=== PATIENT | male | born 1990 | race African-American/Black ===

== ENCOUNTER 2020-03-01 19:44 | Emergency (ER) | payer OTHER, SELFPAY ==
[2020-03-01 19:45] VITALS: BP 153/71; PULSE 72; RESP 16; TEMP 36.2; O2SAT 100
--- NOTE | 2020-03-01 19:56 | ED.GENADULT ---
HPI - General Adult General Chief complaint: Unspecified Stated complaint: nipple swelling Time Seen by Provider: 03/01/20 19:49 Source: patient Mode of arrival: ambulatory Limitations: no limitations History of Present Illness HPI narrative: 30 years old -Finnish male presents with swelling of the right breast started 3 to 4 weeks ago. Patient denies any fever, chills, nausea, vomiting, trauma, discharge. Patient also denies any family history of breast cancer. Patient on hemodialysis Related Data Allergies Allergy/AdvReac Type Severity Reaction Status Date / Time No Known Allergies Allergy Unverified 07/26/17 20:02 Review of Systems Review of Systems: Narrative: CONSTITUTIONAL: Denies fever, chills, or sweats. EYES: Denies visual changes, redness, or discharge. ENT: Denies rhinorrhea, congestion, sore throat, or otalgia. CARDIOVASCULAR: Denies chest pain, palpitations, or edema. RESPIRATORY: Denies cough or dyspnea. GASTROINTESTINAL: Denies abdominal pain, nausea, vomiting, or diarrhea. GENITOURINARY: Denies dysuria or hematuria. SKIN: Denies rash or itching. MUSCULOSKELETAL: Denies back pain, joint pain, or myalgia. NEUROLOGIC: Denies headache, numbness, or weakness. PSYCHIATRIC: Denies anxiety or depression. [facility] Past Medical History Medical History (Updated 03/01/20 @ 20:15 by Brenda Holm MD) Hemodialysis access site with arteriovenous graft Family History Family History (Updated 07/21/17 @ 08:42 by DOCTOR UNKNOWN) Other Cerebrovascular accident Hypertension Social History Social History Alcohol intake: never Gender identity (if verbalized by the patient): Male Exam Narrative: Exam Narrative: General appearance: Well-developed, well-nourished Skin: Normal color. Right breast exam showed no erythema, no nipple discharge, subcutaneous tender 3 x 3 cm lump like feeling under the areOLA, no right axillary lymphadenopathy Neck: Supple, nontender Chest and respiratory: Airway patent, no respiratory distress, no accessory muscle use Heart: Regular rate/rhythm Abdomen: Soft, nontender, no organomegaly, quiet bowel sounds Musculoskeletal: Normal range of motion, nontender back Neurologic: Alert and oriented ?3, LINE MOVER is normal as tested, no gross motor deficit Course Course Emergency Course: Stable Consultations Consultation #1: Dr. Judd Patient need to call his office tomorrow for appointment. Date: 03/01/20 Time: 20:18 Vital Signs Vital signs: Vital Signs Temperature 36.2 C L 03/01/20 19:45 Pulse Rate 72 03/01/20 19:45 Respiratory Rate 16 03/01/20 19:45 Blood Pressure 153/71 H 03/01/20 19:45 Pulse Oximetry 100 03/01/20 19:45 Temperature 36.2 C L 03/01/20 19:45 Pulse Rate 72 03/01/20 19:45 Respiratory Rate 16 03/01/20 19:45 Blood Pressure 153/71 H 03/01/20 19:45 Pulse Oximetry 100 03/01/20 19:45 Medical Decision Making MDM Narrative Medical decision making narrative: Right breast lump. Subcutaneous cyst, subcutaneous mass is my concern Differential Diagnosis Differential Diagnosis: Breast mass, cyst Vital Signs Vital Signs: Vital Signs Temperature 36.2 C L 03/01/20 19:45 Pulse Rate 72 03/01/20 19:45 Respiratory Rate 16 03/01/20 19:45 Blood Pressure 153/71 H 03/01/20 19:45 Pulse Oximetry 100 03/01/20 19:45 Temperature 36.2 C L 03/01/20 19:45 Pulse Rate 72 03/01/20 19:45 Respiratory Rate 16 03/01/20 19:45 Blood Pressure 153/71 H 03/01/20 19:45 Pulse Oximetry 100 03/01/20 19:45 Critical Care Time Critical Care Time Critical Care Time: No Discharge Plan Discharge Clinical Impression: Breast lump or mass
[2020-03-01 20:29] VITALS: BP 148/79; PULSE 86; RESP 16; TEMP 36.7; O2SAT 99
== END 2020-03-01 20:30 | disposition home or self-care (01) ==
LOC: ANHED 20:17
PROVIDERS: Emergency Provider Emergency Medicine
DX: N63.10 Unspecified lump in the right breast, unspecified quadrant (principal)
CPT/HCPCS: 99281

== ENCOUNTER 2020-03-13 12:05 | Outpatient (CLI) | payer OTHER, SELFPAY ==
--- NOTE | ~2020-03-13 | US_ITS ---
EXAMINATION: US breast RT limited HISTORY: Palpable lump in the subareolar aspect of the right breast TECHNIQUE: Limited right breast ultrasound was performed. FINDINGS: There is a focal hypoechoic mass in the subareolar aspect of the right breast which demonst rates some peripheral vascularity and posterior acoustic enhancement corresponding to the palpable ab normality of concern. IMPRESSION: Sonographic findings consistent with asymmetric gynecomastia on the right. Further evaluation at this time should be based on clinical assessment. Continued follow-up physical examination is recommended . BI-RADS Category 2: Benign finding(s). Reviewed, dictated and finalized at location A. TENANCE PLANNER IMPRESSION: Sonographic findings consistent with asymmetric gynecomastia on the right. Furt her evaluation at this time should be based on clinical assessment. Continued f ollow-up physical examination is recommended. BI-RADS Category 2: Benign finding(s).
== END 2020-03-13 12:06 | disposition home or self-care (01) ==
PROVIDERS: PCP Nurse Practitioner; Visit Provider Surgery
DX: N63.0 Unspecified lump in unspecified breast (principal)
CPT/HCPCS: 76642

== ENCOUNTER 2020-09-09 00:18 | Emergency (ER) | payer OTHER, SELFPAY ==
[2020-09-09] VITALS (7 sets, daily range): BP systolic 162–205; BP diastolic 96–130; PULSE 64–105; RESP 12–24; TEMP 36.6; O2SAT 100
--- NOTE | ~2020-09-09 | CT_ITS ---
EXAMINATION: CT abdomen pelvis wo con DATE: 09/09/2020 03:30 INDICATION: Epigastric abdominal pain radiating to chest. Abdominal distention, constipation. Dialysi s patient. TECHNIQUE: Computed tomography (CT) of the abdomen and pelvis was performed without intravenous contr ast. Automated exposure control and iterative reconstruction technique were employed. Exam dose: 189 .17 mGy-cm total exam DLP. COMPARISON: 07/26/2017 CT abdomen pelvis FINDINGS: The lung bases are clear of infiltrate or consolidation. No pleural or pericardial effusion . The liver, gallbladder, bile ducts and spleen are unremarkable. The gallbladder is present. The pancreas appears relatively prominent. There is a paucity of intra-abdominal fat, limiting evalua tion for pancreatitis or other inflammatory conditions. Recommend clinical correlation to exclude suarez creatitis. The adrenal glands are unremarkable. Prominent bilateral diffuse renal atrophy Normal caliber of the abdominal aorta. No apparent intraperitoneal or retroperitoneal or pelvic mass lesion or adenopathy. The appendix appears normal. No bowel obstruction or intraperitoneal free air. No suspicious osteolytic or osteoblastic lesions. IMPRESSION: Bilateral smooth small kidneys Normal appendix No bowel obstruction or free air The pancreas appears relatively prominent; recommend clinical correlation to exclude pancreatitis Reviewed, dictated and finalized at [facility]. Reviewed, dictated and finalized at location B. IMPRESSION: Bilateral smooth small kidneys Normal appendix No bowel obstruction or free air The pancreas appears relatively prominent; recommend clinical correlation to ex clude pancreatitis
--- NOTE | ~2020-09-09 | XR_ITS ---
EXAMINATION: XR chest 2V DATE: 09/09/2020 00:54 INDICATION: Midsternal chest pain TECHNIQUE: PA and lateral views of the chest were obtained. COMPARISON: Chest radiograph dated 08/18/2017 FINDINGS: The lungs remain clear with no focal airspace opacities, pulmonary edema, pleural effusion or pneumot horax. The cardiomediastinal silhouette is normal. Vascular stent at the medial aspect of the left up per arm. IMPRESSION: 1. No acute cardiopulmonary disease. Reviewed, dictated and finalized at location A.
--- NOTE | 2020-09-09 00:22 | ECG_ITS ---
Measurements Intervals [place] Rate: 81 P: 68 CT: 131 QRS: 65 QRSD: 93 T: -15 QT: 364 QTc: 424 Interpretive Statements SINUS RHYTHM MINIMAL Q WAVES- LATERAL LEADS NONSPECIFIC T-WAVE ABNORMALITY- INFERIOR LEADS BORDERLINE ECG Electronically Signed On 09-09-2020 6:06:43 CDT by Donavan Brooks D.O.
[2020-09-09 00:49] LABS: Basophils Percent Auto 0.3 % (0.2-1.2); Eosinophils Absolute Auto 0.2 K/mm3 (0-0.3); Eosinophils Percent Auto 3.4 % (0-4.4); Hematocrit 35.6 % (42.0-52.0); Hemoglobin 11.4 g/dL (14.0-18.0); Immature Granulocyte Absolute 0.01 K/mm3 (0.00-0.031); Immature Granulocyte Percent A 0.2 % (0-0.5); Lymphocytes Absolute Auto 2.08 K/mm3 (0.9-3.2); Lymphocytes Percent Auto 35.7 % (18.3-44.2); Mean Corpuscular Hemoglobin 28.2 pg (26-34); Mean Corpuscular Volume 88.1 fl (80-100); Mean Platelet Volume 8.8 fl (7.4-10.4); Monocytes Absolute Auto 0.5 K/mm3 (0.1-0.6); Monocytes Percent Auto 8.4 % (2.6-8.5); Platelet Count Result 267 k/mm3 (150-375); Red Blood Count 4.04 M/mm3 (4.6-6.20); Red Cell Distribution Width 12.6 % (11.5-14.5); White Blood Count 5.8 K/mm3 (4.5-10.0)
[2020-09-09 00:59] LABS: INR 0.9; Prothrombin Time 11.6 Seconds (11.1-14.7)
[2020-09-09 01:00] LABS: Partial Thromboplastin Time 29.7 SECONDS (22.3-36.8)
[2020-09-09 01:02] LABS: Anion Gap 10 mmol/L (8-16); Blood Urea Nitrogen 41 mg/dL (9-20); Calcium 9.3 mg/dL (8.4-10.2); Carbon Dioxide 32 mmol/L (22-30); Chloride 95 mmol/L (98-107); Estimated CRCL calculation 7 ml/min; Estimated Glomerular Filt Rate 6; Glucose 104 mg/dL (65-110); Potassium 4.7 mmol/L (3.4-5.0); Sodium 137 mmol/L (137-145)
[2020-09-09 02:39] LABS: Alanine Aminotransferase 37 U/L (4-50); Albumin Level 4.5 g/dL (3.5-5.1); Alkaline Phosphatase 79 U/L (38-126); Aspartate Amino Transferase 34 U/L (17-59); Bilirubin,Total 0.5 mg/dL (0.2-1.3); Lipase 631 U/L (23-300)
[2020-09-09] MEDS: LABETALOL HCL INJ 100 MG/20 ML VIAL 20 MG IV PUSH (02:40)
--- NOTE | 2020-09-09 03:13 | ED.GENADULT ---
HPI - General Adult General Chief complaint: Abdominal Pain Stated complaint: abd pain Time Seen by Provider: 09/09/20 02:17 History of Present Illness HPI narrative: Patient is a 30-year-old gentleman who presents the emergency department with chief complaint of epigastric discomfort and shortness of breath. Patient states for some time he has been having increasing shortness of breath and the discomfort in the epigastric area. Patient reports he is a dialysis patient goes to dialysis Monday. Patient reports had no change in his dry weight denies fever denies vomiting denies diarrhea. Patient states that tonight he was concerned and decided to come to the emergency department for evaluation. Related Data Home Medications Medication Instructions Recorded Confirmed amlodipine 10 mg tablet 10 mg PO DAILY 03/02/20 03/18/20 losartan 25 mg tablet 25 mg PO DAILY 03/02/20 03/18/20 ondansetron 09/09/20 tramadol mg 09/09/20 09/09/20 Allergies Allergy/AdvReac Type Severity Reaction Status Date / Time No Known Allergies Allergy Verified 03/18/20 09:02 Review of Systems Review of Systems: A 10 system review of systems was completed on the patient and is negative except for what is stated in the HPI. Nursing and ancillary documentation was reviewed. 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 HEAD: Normocephalic, atraumatic. EYES: PERRLA and EOMI. ENT: Nares clear, no rhinorrhea or epistaxis. Mucous membranes moist. NECK: Supple. CHEST: Clear to auscultation. No respiratory distress. HEART: Regular rate and rhythm. No murmur heard. Normal peripheral pulses. ABDOMEN: Soft, nontender, nondistended, normal active bowel sounds. EXTREMITIES: Normal range of motion. No edema. SKIN: Warm, dry, no rash. NEURO: No focal deficits. Alert and oriented x3. PSYCH: Normal mood and affect. Course Vital Signs Vital signs: Vital Signs Temperature 36.6 C 09/09/20 00:25 Pulse Rate 105 H 09/09/20 00:25 Respiratory Rate 18 09/09/20 00:25 Blood Pressure 194/111 H 09/09/20 00:25 Pulse Oximetry 100 09/09/20 00:25 Temperature 36.6 C 09/09/20 00:25 Pulse Rate 76 09/09/20 05:01 Respiratory Rate 24 H 09/09/20 05:01 Blood Pressure 172/103 H 09/09/20 05:01 Pulse Oximetry 100 09/09/20 03:35 Medical Decision Making Vital Signs Vital Signs: Vital Signs Temperature 36.6 C 09/09/20 00:25 Pulse Rate 105 H 09/09/20 00:25 Respiratory Rate 18 09/09/20 00:25 Blood Pressure 194/111 H 09/09/20 00:25 Pulse Oximetry 100 09/09/20 00:25 Temperature 36.6 C 09/09/20 00:25 Pulse Rate 76 09/09/20 05:01 Respiratory Rate 24 H 09/09/20 05:01 Blood Pressure 172/103 H 09/09/20 05:01 Pulse Oximetry 100 09/09/20 03:35 Lab Data Result diagrams: 09/09/20 00:39 09/09/20 00:39 Labs: Lab Results 09/09/20 09/09/20 09/09/20 Range/Units 00:38 00:39 00:39 WBC 5.8 (4.5-10.0) K/mm3 RBC 4.04 L (4.6-6.20) M/mm3 Hgb 11.4 L (14.0-18.0) g/dL Hct 35.6 L (42.0-52.0) % MCV 88.1 (80-100) fl MCH 28.2 (26-34) pg MCHC 32.0 (32-36) g
--- NOTE | 2020-09-09 03:17 | PC.NURSE ---
Pt to imaging at this time.
[2020-09-09 04:23] LABS: Troponin I 0.031 ng/mL (0.000-0.034)
== END 2020-09-09 05:54 | disposition home or self-care (01) ==
PROVIDERS: Emergency Provider Emergency Medicine; PCP Nurse Practitioner
DX: I12.0 Hypertensive chronic kidney disease with stage 5 chronic kidney disease or end stage renal disease (principal); N18.6 End stage renal disease; R10.84 Generalized abdominal pain; R74.8 Abnormal levels of other serum enzymes; Z99.2 Dependence on renal dialysis; D64.9 Anemia, unspecified; R94.31 Abnormal electrocardiogram [ECG] [EKG]
CPT/HCPCS: 36415; 71046; 74176; 80048; 80076; 83690; 84484; 85025; 85610; 85730; 93005; 96374; 99284

== ENCOUNTER 2020-09-13 17:44 | Emergency (ER) | payer OTHER, SELFPAY ==
[2020-09-13 17:47] VITALS: BP 199/107; PULSE 76; RESP 18; TEMP 36.2; O2SAT 100
--- NOTE | 2020-09-13 19:07 | PC.NURSE ---
patient states his symptoms have resolved and he no longer needs to be seen
--- NOTE | 2020-09-13 21:12 | PC.NURSE ---
no answer retail personal banker for room.
== END 2020-09-13 21:12 | disposition left against medical advice (07) ==
LOC: ANHED 21:21
DX: R20.0 Anesthesia of skin (principal)
CPT/HCPCS: 99199

== ENCOUNTER 2020-09-16 13:44 | Emergency (ER) | payer OTHER, SELFPAY ==
--- NOTE | ~2020-09-16 | XR_ITS ---
EXAMINATION: XR chest 2V DATE: 09/16/2020 14:23 INDICATION: Shortness of breath. TECHNIQUE: Frontal and lateral views of the chest were obtained. COMPARISON: Chest 2 views 09/09/2020 FINDINGS: The chest demonstrates clear lungs without pneumonia, pleural effusion, or pneumothorax. Th e heart size is normal. There is a vascular stent overlying the left axilla. IMPRESSION: 1. No acute cardiopulmonary disease. Reviewed, dictated and finalized at location A.
[2020-09-16 13:55] VITALS: BP 173/102; PULSE 87; RESP 16; TEMP 36.8; O2SAT 100
--- NOTE | 2020-09-16 13:58 | ECG_ITS ---
Measurements Intervals [place] Rate: 81 P: 62 TN: 136 QRS: 40 QRSD: 87 T: -20 QT: 370 QTc: 430 Interpretive Statements SINUS RHYTHM POSSIBLE LEFT ATRIAL ENLARGEMENT BORDERLINE T WAVE ABNORMALITY- INF/LAT LEADS BASELINE ARTIFACT- V4-V6 BORDERLINE ECG Electronically Signed On 09-16-2020 15:50:00 CDT by Donavan Brooks D.O.
[2020-09-16 14:25] LABS: Anion Gap 10 mmol/L (8-16); Blood Urea Nitrogen 52 mg/dL (9-20); Calcium 8.7 mg/dL (8.4-10.2); Carbon Dioxide 31 mmol/L (22-30); Chloride 95 mmol/L (98-107); Estimated CRCL calculation 7 ml/min; Estimated Glomerular Filt Rate 6; Glucose 93 mg/dL (65-110); Potassium 4.9 mmol/L (3.4-5.0); Sodium 136 mmol/L (137-145)
[2020-09-16 14:30] LABS: Basophils Percent Auto 0.6 % (0.2-1.2); Eosinophils Absolute Auto 0.2 K/mm3 (0-0.3); Eosinophils Percent Auto 3.8 % (0-4.4); Hematocrit 30.5 % (42.0-52.0); Hemoglobin 9.5 g/dL (14.0-18.0); Immature Granulocyte Absolute 0.01 K/mm3 (0.00-0.031); Immature Granulocyte Percent A 0.2 % (0-0.5); Lymphocytes Absolute Auto 1.25 K/mm3 (0.9-3.2); Lymphocytes Percent Auto 26.7 % (18.3-44.2); Mean Corpuscular HGB Conc 31.1 g/dl (32-36); Mean Corpuscular Hemoglobin 27.6 pg (26-34); Mean Corpuscular Volume 88.7 fl (80-100); Monocytes Absolute Auto 0.4 K/mm3 (0.1-0.6); Monocytes Percent Auto 8.5 % (2.6-8.5); Neutrophils Absolute Auto 2.8 K/mm3 (1.3-6.7); Neutrophils Percent Auto 60.2 % (45.5-73.1); Platelet Count Result 226 k/mm3 (150-375); Red Blood Count 3.44 M/mm3 (4.6-6.20); Red Cell Distribution Width 12.9 % (11.5-14.5); White Blood Count 4.7 K/mm3 (4.5-10.0)
[2020-09-16 15:40] VITALS: BP 165/99; PULSE 85; PULSE 92; RESP 18; O2SAT 100
[2020-09-16 16:06] LABS: Add Urine Microscopic? YES; Appearance Urine Clear (Clear); Bilirubin Urine Negative (Negative); Blood Urine Negative (Negative); Color Urine Straw (Yellow); Glucose Urine UA 2+ mg/dL (Negative); Ketones Urine Negative (Negative); Leukocyte Esterase Ur Negative LEU/UL (Negative); Nitrate Urine Negative (Negative); Protein Urine 3+ mg/dL (Negative); RBC Urine 0-2 /hpf (0-2); Specific Grav Ur 1.009 (1.001-1.035); Urobilinogen Urine Negative mg/dL (<2.0); WBC Urine 0-3 /hpf
--- NOTE | 2020-09-16 16:29 | ED.SOB ---
HPI - SOB/Dyspnea General Chief Complaint: Shortness of Breath/Dyspnea Stated Complaint: diff breathing, right scapular pain Time Seen by Provider: 09/16/20 15:54 Source: patient Mode of arrival: ambulatory Limitations: no limitations History of Present Illness HPI Narrative: 30-year-old with a history of ESRD on hemodialysis here with complaints of pain behind his right scapula since this morning he also states that he is short of breath. Patient states that he missed his dialysis because he was having pain. He denies any left-sided chest pain, nausea or shortness of breath. He denies any fever. Pertinent past history: other (ESRD on hemodialysis) Onset (ago): day(s) (1) Timing: constant Severity: moderate Exacerbating factors: nothing Relieving factors: nothing Associated symptoms: denies other symptoms Related Data Home Medications Medication Instructions Recorded Confirmed amlodipine 10 mg tablet 10 mg PO DAILY 03/02/20 03/18/20 losartan 25 mg tablet 25 mg PO DAILY 03/02/20 03/18/20 ondansetron 09/09/20 tramadol mg 09/09/20 09/09/20 Allergies Allergy/AdvReac Type Severity Reaction Status Date / Time No Known Allergies Allergy Verified 03/18/20 09:02 Review of Systems Review of Systems: All systems reviewed & are unremarkable except as noted in HPI and below Constitutional: Constitutional: Reports no additional constitutional complaints Eyes: Eyes: Reports no additional eye complaints ENT: Reports system reviewed and no additional complaints, except as documented Cardiovascular: Cardiovascular: Reports no additional cardiovascular complaints Respiratory: Respiratory: Reports as per HPI Gastrointestinal: Gastrointestinal: Reports no additional gastrointestinal complaints Musculoskeletal: Musculoskeletal: Reports no additional musculoskeletal complaints [facility] Past Medical History Medical History Anemia Chronic renal failure, stage 5 Hemodialysis access site with arteriovenous graft Hypertension Surgical History Surgical History No pertinent past surgical history Family History Family History Grandparent Hypertension Other Cerebrovascular accident Social History Social History Smoking status: Never smoker Alcohol intake: never 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 HEAD: Normocephalic, atraumatic. EYES: PERRLA and EOMI.. NECK: Supple. CHEST: Clear to auscultation. No respiratory distress. HEART: Regular rate and rhythm. No murmur heard. Normal peripheral pulses. ABDOMEN: Soft, nontender, nondistended, normal active bowel sounds. EXTREMITIES: Normal range of motion. No edema. SKIN: Warm, dry, no rash. NEURO: No focal deficits. Alert and oriented x3. PSYCH: Normal mood and affect. Course Course Emergency Course: Patient comfortably lying on the stretcher in no discomfort with SPO2 100% on room air. He states he is short of breath but his lungs are clear he was able to talk without any difficulty. I discussed lab, EKG and chest x-ray findings with him. I spoke to Dr. Arnoldo Banegas his head bander and liner operator. Recommended him to get the dialysis done tomorrow morning. I did inform my discussion with Dr. Arnoldo Banegas. Vital Signs Vital signs: Vital Signs Temperature 36.8 C 09/16/20 13:55 Pulse Rate 87 09/16/20 13:55 Respiratory Rate 16 09/16/20 13:55 Blood Pressure 173/102 H 09/16/20 13:55 Pulse Oximetry 100 09/16/20 13:55 Temperature 36.8 C 09/16/20 13:55 Pulse Rate 92 09/16/20 15:40 Respiratory Rate 18 09/16/20 15:40 Blood Pressure 165/99 H 09/16/20 15:40 Pulse Oximetry 100 09/16/20 1
[2020-09-16 17:26] VITALS: BP 165/99; PULSE 82; RESP 15; O2SAT 100
== END 2020-09-16 17:27 | disposition home or self-care (01) ==
PROVIDERS: Emergency Medicine; Emergency Provider Family Medicine; PCP Surgery
DX: M54.6 Pain in thoracic spine (principal); N18.6 End stage renal disease; I12.0 Hypertensive chronic kidney disease with stage 5 chronic kidney disease or end stage renal disease; Z99.2 Dependence on renal dialysis; D64.9 Anemia, unspecified; R94.31 Abnormal electrocardiogram [ECG] [EKG]
CPT/HCPCS: 36415; 71046; 80048; 81001; 85025; 93005; 99284

== ENCOUNTER 2020-09-23 17:39 | Emergency (ER) | payer OTHER, SELFPAY ==
--- NOTE | ~2020-09-23 | CT_ITS ---
EXAMINATION: CT abdomen pelvis wo con DATE: 09/23/2020 22:22 INDICATION: Lower abdominal pain, nausea, vomiting, diarrhea. Stage V renal failure. Dialysis depende nt patient. TECHNIQUE: Computed tomography (CT) of the abdomen and pelvis was performed without intravenous contr ast. Automated exposure control and iterative reconstruction technique were employed. Exam dose: 204 .15 mGy-cm total exam DLP. COMPARISON: 09/09/[address] abdomen pelvis FINDINGS: The lung bases are clear. No pleural or pericardial effusion. Interval mild free fluid in the abdominal peritoneal cavities since 09/09/2020. The liver, gallbladder, bile ducts, spleen, pancreas and pancreatic duct appear unremarkable. Bilateral small kidneys. No urinary tract calculus or hydroureteronephrosis. Normal caliber of the abdominal aorta. Minimal iliac artery calcifications. Small and large bowel air-fluid levels are noted, which may represent adynamic ileus or enterocolitis . No bowel obstruction or intraperitoneal free air is detected. No suspicious osteolytic or osteoblastic lesions are noted. IMPRESSION: Bilateral small kidneys; interval mild free fluid in the abdominal and pelvic cavities s kwabena 09/2020 Air-fluid levels of the small and large bowel, which may be due to enterocolitis or adynamic ileus Reviewed, dictated and finalized at [facility]. Reviewed, dictated and finalized at location A. IMPRESSION: Bilateral small kidneys; interval mild free fluid in the abdominal and pelvic cavities since 09/2020 Air-fluid levels of the small and large bowel, which may be due to enterocoliti s or adynamic ileus
[2020-09-23 17:46] VITALS: BP 162/105; PULSE 76; RESP 18; TEMP 36.7; O2SAT 100
[2020-09-23 18:22] LABS: Basophils Percent Auto 0.3 % (0.2-1.2); Eosinophils Absolute Auto 0.1 K/mm3 (0-0.3); Eosinophils Percent Auto 1.2 % (0-4.4); Hematocrit 38.3 % (42.0-52.0); Hemoglobin 12.1 g/dL (14.0-18.0); Immature Granulocyte Absolute 0.02 K/mm3 (0.00-0.031); Immature Granulocyte Percent A 0.2 % (0-0.5); Lymphocytes Absolute Auto 2.52 K/mm3 (0.9-3.2); Lymphocytes Percent Auto 26.9 % (18.3-44.2); Mean Corpuscular HGB Conc 31.6 g/dl (32-36); Mean Corpuscular Hemoglobin 27.2 pg (26-34); Mean Corpuscular Volume 86.1 fl (80-100); Mean Platelet Volume 10.5 fl (7.4-10.4); Monocytes Absolute Auto 0.8 K/mm3 (0.1-0.6); Monocytes Percent Auto 8.4 % (2.6-8.5); Neutrophils Absolute Auto 5.9 K/mm3 (1.3-6.7); Platelet Count Result 214 k/mm3 (150-375); Red Blood Count 4.45 M/mm3 (4.6-6.20); Red Cell Distribution Width 13.2 % (11.5-14.5); White Blood Count 9.4 K/mm3 (4.5-10.0)
[2020-09-23 18:38] LABS: Anion Gap 9 mmol/L (8-16); Blood Urea Nitrogen 45 mg/dL (9-20); Calcium 8.8 mg/dL (8.4-10.2); Carbon Dioxide 30 mmol/L (22-30); Chloride 90 mmol/L (98-107); Estimated CRCL calculation 7 ml/min; Estimated Glomerular Filt Rate 6; Glucose 89 mg/dL (65-110); Potassium 4.8 mmol/L (3.4-5.0); Sodium 129 mmol/L (137-145)
[2020-09-23 21:34] VITALS: BP 203/130; PULSE 95; RESP 20; O2SAT 100
--- NOTE | 2020-09-23 22:40 | ED.ABDPAIN ---
HPI - Abdominal Pain General Chief Complaint: Abdominal Pain Stated Complaint: abd pain, weak, diarrhea Time Seen by Provider: 09/23/20 21:40 Source: patient History of Present Illness HPI narrative: Patient reports nausea vomiting diarrhea and abdominal pain for the past few days. Said difficult time keeping anything down. He showed up to dialysis today his dialysis center refused dialysis there were concerned he might have Covid that he should get a Covid test prior to returning for dialysis. Pain is abdomen is diffuse crampy constant no no clear aggravating or alleviating factors. Patient denies known sick contacts he denies fevers. He denies recent antibiotic Related Data Home Medications Medication Instructions Recorded Confirmed amlodipine 10 mg tablet 10 mg PO DAILY 03/02/20 09/17/20 losartan 25 mg tablet 25 mg PO DAILY 03/02/20 09/17/20 ondansetron 09/09/20 09/17/20 tramadol mg 09/09/20 09/17/20 Allergies Allergy/AdvReac Type Severity Reaction Status Date / Time No Known Allergies Allergy Verified 03/18/20 09:02 Review of Systems Review of Systems: CONSTITUTIONAL: Denies fever, chills, or sweats. EYES: Denies visual changes, redness, or discharge. ENT: Denies rhinorrhea, congestion, sore throat, or otalgia. CARDIOVASCULAR: Denies chest pain, palpitations, or edema. RESPIRATORY: Denies cough or dyspnea. GASTROINTESTINAL: Reports nausea vomiting diarrhea and abdominal pain GENITOURINARY: Denies dysuria or hematuria. SKIN: Denies rash or itching. MUSCULOSKELETAL: Denies back pain, joint pain, or myalgia. NEUROLOGIC: Denies headache, numbness, dizziness, or weakness. PSYCHIATRIC: Denies anxiety or depression. 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 HEAD: Normocephalic, atraumatic. EYES: PERRLA and EOMI. ENT: Nares clear, no rhinorrhea or epistaxis. Mucous membranes moist. NECK: Supple. No masses. No JVD ABDOMEN: Mild tenderness to deep palpation soft, nondistended EXTREMITIES: Normal range of motion. No edema. SKIN: Warm, dry, no rash. NEURO: No focal deficits. Alert and oriented x3. PSYCH: Normal mood and affect. Course Vital Signs Vital signs: Vital Signs Temperature 36.7 C 09/23/20 17:46 Pulse Rate 76 09/23/20 17:46 Respiratory Rate 18 09/23/20 17:46 Blood Pressure 162/105 H 09/23/20 17:46 Pulse Oximetry 100 09/23/20 17:46 Temperature 36.7 C 09/23/20 17:46 Pulse Rate 95 09/23/20 21:34 Respiratory Rate 20 09/23/20 21:34 Blood Pressure 203/130 H 09/23/20 21:34 Pulse Oximetry 100 09/23/20 21:34 MDM - Abdominal Pain Lab Data Result diagrams: 09/23/20 18:05 09/23/20 18:05 Labs: Lab Results 09/23/20 09/23/20 Range/Units 18:05 18:05 WBC 9.4 (4.5-10.0) K/mm3 RBC 4.45 L (4.6-6.20) M/mm3 Hgb 12.1 L (14.0-18.0) g/dL Hct 38.3 L (42.0-52.0) % MCV 86.1 (80-100) fl MCH 27.2 (26-34) pg MCHC 31.6 L (32-36) g/dl RDW 13.2 (11.5-14.5) % Plt Count 214 (150-375) k/mm3 MPV 10.5 H (7.4-10.4) fl Immature Gran % (Auto) 0.2 (0-0.5) % Neut % (Auto) 63.0 (45.5-73.1) % Lymph % (Auto) 26.9 (18.3-44.2) % [place] % (Auto) 8.4 (
[2020-09-23] MEDS: SODIUM CHLORIDE 0.9% IV 500 ML 999 ML IV CONT (22:46)
[2020-09-23] MEDS: ONDANSETRON INJ 4 MG/2 ML VIAL IV PUSH (22:47)
[2020-09-23 22:52] VITALS: BP 215/132; PULSE 95; RESP 20; O2SAT 100
[2020-09-23 23:18] LABS: EDCOVIDSCREEN Negative (Negative)
[2020-09-23] MEDS: MORPHINE SULFATE (*CRX) 4 MG/ML INJ IV PUSH (23:31)
--- NOTE | 2020-09-24 00:04 | ED.GENADULT ---
HPI - General Adult General Chief complaint: Abdominal Pain Stated complaint: abd pain, weak, diarrhea Time Seen by Provider: 09/23/20 21:40 Source: patient History of Present Illness HPI narrative: Please see first note for HPI and exam Related Data Home Medications Medication Instructions Recorded Confirmed amlodipine 10 mg tablet 10 mg PO DAILY 03/02/20 09/17/20 losartan 25 mg tablet 25 mg PO DAILY 03/02/20 09/17/20 ondansetron 09/09/20 09/17/20 tramadol mg 09/09/20 09/17/20 Allergies Allergy/AdvReac Type Severity Reaction Status Date / Time No Known Allergies Allergy Verified 03/18/20 09:02 [facility] Past Medical History Medical History Anemia Chronic renal failure, stage 5 Hemodialysis access site with arteriovenous graft Hypertension Surgical History Surgical History No pertinent past surgical history Family History Family History Grandparent Hypertension Other Cerebrovascular accident Social History Social History Smoking status: Never smoker Alcohol intake: never 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 Patient reports his symptoms have improved. Patient elected to do a trial of outpatient supportive therapies. Date: 09/24/20 Time: 00:04 Vital Signs Vital signs: Vital Signs Temperature 36.7 C 09/23/20 17:46 Pulse Rate 76 09/23/20 17:46 Respiratory Rate 18 09/23/20 17:46 Blood Pressure 162/105 H 09/23/20 17:46 Pulse Oximetry 100 09/23/20 17:46 Temperature 36.7 C 09/23/20 17:46 Pulse Rate 83 09/24/20 01:10 Respiratory Rate 18 09/24/20 01:10 Blood Pressure 172/101 H 09/24/20 01:10 Pulse Oximetry 97 09/24/20 01:10 Medical Decision Making MDM Narrative Medical decision making narrative: H&P as above, vs with hypertension patient has been unable to take his blood pressure medications due to vomiting, pt looks clinically well, exam with moderate abdominal pain, labs with stable creatinine mild hyponatremia, img concern for enterocolitis, additional labs/img considered. symptomatic relief available as needed, on reevaluation pt continues to looks clinically well reporting large improvement in symptoms. Suspect viral process, lower clinical concern for small bowel obstruction, pancreatitis, perforation, appendicitis. Given patient's improvement patient preferred trial of outpatient supportive therapies. Return precautions given Vital Signs Vital Signs: Vital Signs Temperature 36.7 C 09/23/20 17:46 Pulse Rate 76 09/23/20 17:46 Respiratory Rate 18 09/23/20 17:46 Blood Pressure 162/105 H 09/23/20 17:46 Pulse Oximetry 100 09/23/20 17:46 Temperature 36.7 C 09/23/20 17:46 Pulse Rate 83 09/24/20 01:10 Respiratory Rate 18 09/24/20 01:10 Blood Pressure 172/101 H 09/24/20 01:10 Pulse Oximetry 97 09/24/20 01:10 Lab Data Result diagrams: 09/23/20 18:05 09/23/20 18:05 Labs: Lab Results 09/23/20 09/23/20 09/23/20 Range/Units 18:05 18:05 22:56 WBC 9.4 (4.5-10.0) K/mm3 RBC 4.45 L (4.6-6.20) M/mm3 Hgb 12.1 L (14.0-18.0) g/dL Hct 38.3 L (42.0-52.0) % MCV 86.1 (80-100) fl MCH 27.2 (26-34) pg MCHC 31.6 L (32-36) g/dl RDW 13.2 (11.5-14.5) % Plt Count 214 (150-375) k/mm3 MPV 10.5 H (7.4-10.4) fl Immature Gran % (Auto) 0.2 (0-0.5) % Neut % (Auto) 63.0 (45.5-73.1) % Lymph % (Auto) 26.9 (18.3-44.2) % [place] % (Auto) 8.4 (2.6-8.5) % Eos % (Auto) 1.2 (0-4.4) % Baso % (Auto) 0.3 (0.2-1.2) % Lymph # (Auto) 2.52 (0.9-3.2) K/mm3 Kenton # (Auto) 0.8 H (
[2020-09-24 01:10] VITALS: BP 172/101; PULSE 83; RESP 18; O2SAT 97
== END 2020-09-24 01:13 | disposition home or self-care (01) ==
PROVIDERS: Emergency Medicine; Emergency Provider Emergency Medicine
DX: R11.2 Nausea with vomiting, unspecified (principal); R19.7 Diarrhea, unspecified; Z20.822 Contact with and (suspected) exposure to COVID-19; I12.0 Hypertensive chronic kidney disease with stage 5 chronic kidney disease or end stage renal disease; N18.5 Chronic kidney disease, stage 5; Z99.2 Dependence on renal dialysis; D64.9 Anemia, unspecified
CPT/HCPCS: 36415; 74176; 80048; 85025; 87426; 96361; 96374; 96375; 99284; C9803; J2270; J2405; J7040

== ENCOUNTER 2020-10-06 16:17 | Inpatient (IN) | payer OTHER, SELFPAY ==
[2020-10-06] VITALS (7 sets, daily range): BP systolic 145–177; BP diastolic 85–115; PULSE 86–108; RESP 21–54; TEMP 37.2; O2SAT 94–100
--- NOTE | ~2020-10-06 | XR_ITS ---
EXAMINATION: XR chest 1V portable DATE: 10/06/2020 17:25 INDICATION: Cough and weakness. Shortness of breath. TECHNIQUE: A single frontal view of the chest was obtained. COMPARISON: Chest 2 views 09/16/2020 FINDINGS: There are patchy airspace opacities in all lung zones bilaterally. No pleural effusion or p neumothorax. The heart size is normal. There is a vascular stent in left upper limb. IMPRESSION: 1. Diffuse lung disease, consistent with pulmonary edema versus pneumonia. Reviewed, dictated and finalized at location A.
--- NOTE | ~2020-10-06 | XR_ITS ---
EXAMINATION: XR chest 2V DATE: 10/09/2020 10:23 INDICATION: Pneumonia, shortness of breath TECHNIQUE: PA and lateral views of the chest are obtained. COMPARISON: 10/06/2020 FINDINGS: Patchy opacities persist in all lung zones with slight interval improvement. There is no pl eural effusion or pneumothorax. Cardiomegaly is noted. Again noted is a vascular stent in the left up per extremity. The visualized osseous structures are unremarkable. IMPRESSION: 1. Diffuse lung disease with interval improvement, consistent with pneumonia/or pulmonary edema. Reviewed, dictated and finalized at location A.
--- NOTE | 2020-10-06 17:03 | ECG_ITS ---
Measurements Intervals Apex Rate: 83 P: 72 WV: 131 QRS: 77 QRSD: 93 T: -44 QT: 368 QTc: 434 Interpretive Statements SINUS RHYTHM POSSIBLE LEFT ATRIAL ENLARGEMENT INCOMPLETE RIGHT BUNDLE BRANCH BLOCK DELAYED PRECORDIAL R/S TRANSITION BORDERLINE T WAVE ABNORMALITY- INFERIOR LEADS BASELINE ARTIFACT- V3-V6 BORDERLINE ECG Electronically Signed On 10-07-2020 6:26:37 CDT by Donavan Brooks D.O.
--- NOTE | 2020-10-06 17:03 | ED.GENADULT ---
HPI - General Adult General Chief complaint: Weakness Stated complaint: WEAKNESS Time Seen by Provider: 10/06/20 16:19 Source: patient Mode of arrival: EMS Limitations: no limitations History of Present Illness HPI narrative: Patient is a 30-year-old male complaining of cough, productive, yellowish sputum, fatigue, generalized weakness and headache x1 week. Patient states that he has been coughing constantly causing him a headache. Patient states that he tested negative for Covid a little more than a week ago. Patient denies any chest pain, shortness of breath, abdominal pain, nausea, vomiting, diaphoresis, fever or chills. Patient states that he received his Covid vaccine last month and supposed to have her second dose last week but started to have the above symptoms so he was not able to get it. Patient does admit to having his dialysis today and finished it. Patient gets his dialysis on Tuesdays and Saturdays. Related Data Home Medications Medication Instructions Recorded Confirmed amlodipine 10 mg tablet 10 mg PO DAILY 03/02/20 09/17/20 losartan 25 mg tablet 25 mg PO DAILY 03/02/20 09/17/20 ondansetron 09/09/20 09/17/20 tramadol mg 09/09/20 09/17/20 Allergies Allergy/AdvReac Type Severity Reaction Status Date / Time No Known Allergies Allergy Verified 10/06/20 16:33 Review of Systems Review of Systems: All systems reviewed & are unremarkable except as noted in HPI and below Constitutional: Constitutional: Denies body ache(s), Denies chills, Denies excessive sweating, Denies fever(s), Denies headache(s), Denies lethargy, Denies malaise and Denies weight loss Eyes: Eyes: Denies blurry vision, Denies change in vision and Denies loss of vision ENT: Denies dizziness, Denies ear discharge, Denies headache(s), Denies lip swelling, Denies epistaxis, Denies nasal congestion, Denies neck pain, Denies throat swelling and Denies tongue swelling Cardiovascular: Cardiovascular: Denies chest pain, Denies chest pain at rest, Denies chest pain with activity, Denies diaphoresis, Denies rapid heart rate, Denies edema, Denies irregular heart rhythm, Denies lightheadedness, Denies palpitations, Denies dyspnea and Denies dyspnea on exertion Respiratory: Respiratory: Denies chest congestion, Denies hemoptysis, Denies dyspnea and Denies dyspnea on exertion Gastrointestinal: Gastrointestinal: Denies abdominal pain, Denies melena, Denies hematochezia, Denies diarrhea, Denies nausea, Denies vomiting and Denies hematemesis Musculoskeletal: Musculoskeletal: Denies abnormal gait, Denies deformity, Denies joint swelling, Denies limited range of motion, Denies neck pain and Denies numbness Neurologic: Denies Abnormal speech present, Denies abnormal gait, Denies confusion, Denies dizziness, Denies headache(s), Denies focal weakness, Denies loss of vision, Denies numbness, Denies Other visual disturbances and Denies Sensory deficit (Neuro) Psychiatric: Psychiatric: Denies confusion, Denies depression, Denies auditory hallucinations, Denies homicidal ideation and Denies suicidal ideation Endocrine: Endocrine: Denies cold intolerance, Denies excessive sweating, Denies fatigue, Denies heat intolerance and Denies palpitations Hematologic/Lymphatic: Hematologic/Lymphatic: Denies easy bleeding and Denies easy bruising Allergic/Immunologic: Allergic/Immunologic: Denies lip swelling, Denies throat swelling and Denies tongue swelling PMFSH Past Medical History Medical History Anemia Chronic renal failure, stage 5 Hemodialysis access site with arteriovenous graft Hypertension Surgical History Surgical History No pertinent past surgical history Family History Family History Grandparent Hypertension Other Cerebrovascular accident Social History Social History (Reviewed
[2020-10-06 18:34] LABS: Basophils Absolute Auto 0.1 K/mm3 (0.0-0.1); Basophils Percent Auto 0.5 % (0.2-1.2); Eosinophils Absolute Auto 0.1 K/mm3 (0-0.3); Eosinophils Percent Auto 0.8 % (0-4.4); Hematocrit 33.5 % (42.0-52.0); Hemoglobin 10.7 g/dL (14.0-18.0); Immature Granulocyte Absolute 0.05 K/mm3 (0.00-0.031); Immature Granulocyte Percent A 0.5 % (0-0.5); Mean Corpuscular HGB Conc 31.9 g/dl (32-36); Mean Corpuscular Hemoglobin 28.3 pg (26-34); Mean Corpuscular Volume 88.6 fl (80-100); Mean Platelet Volume 9.6 fl (7.4-10.4); Monocytes Absolute Auto 0.6 K/mm3 (0.1-0.6); Monocytes Percent Auto 5.8 % (2.6-8.5); Neutrophils Absolute Auto 8.1 K/mm3 (1.3-6.7); Neutrophils Percent Auto 80.4 % (45.5-73.1); Platelet Count Result 391 k/mm3 (150-375); Red Blood Count 3.78 M/mm3 (4.6-6.20); Red Cell Distribution Width 14.4 % (11.5-14.5)
[2020-10-06] MEDS: DEXAMETHASONE SOD PHOS INJ 4 MG/ML VIAL 8 MG (18:36)
[2020-10-06] MEDS: DEXAMETHASONE SOD PHOS INJ 4 MG/ML VIAL 10 MG IV PUSH (18:36)
[2020-10-06 18:43] LABS: Alanine Aminotransferase 28 U/L (4-50); Albumin Level 4.1 g/dL (3.5-5.1); Alkaline Phosphatase 99 U/L (38-126); Anion Gap 8 mmol/L (8-16); Aspartate Amino Transferase 38 U/L (17-59); Bilirubin,Total 0.6 mg/dL (0.2-1.3); Blood Urea Nitrogen 31 mg/dL (9-20); Calcium 9.1 mg/dL (8.4-10.2); Carbon Dioxide 34 mmol/L (22-30); Chloride 93 mmol/L (98-107); Estimated CRCL calculation 11 ml/min; Estimated Glomerular Filt Rate 9; Glucose 91 mg/dL (65-110); Potassium 5.3 mmol/L (3.4-5.0); Sodium 135 mmol/L (137-145)
[2020-10-06 18:46] LABS: Lactic Acid Reflex 0.9 mmol/L (0.7-2.1)
--- NOTE | 2020-10-06 20:55 | PC.NURSE ---
pt O2 saturation 87% on 3 L. bumped pt up to 5 L via nasal canula and pt is at 94% at this time.
[2020-10-06] MEDS: ALBUTEROL SULFATE NEB 2.5 MG/0.5 ML INH 10 MG INHALATION (21:51)
[2020-10-06] MEDS: FUROSEMIDE INJ 40 MG/4 ML VIAL 20 MG IV PUSH (22:44)
--- NOTE | 2020-10-06 23:22 | PM.IMHP ---
H&P: HPI History of Present Illness Date/Time: 10/06/20 23:22 Chief Complaint: Generalized weakness Narrative: This is a 30-year-old male with past medical history significant for end-stage renal disease on hemodialysis Monday and Saturdays. Patient tested positive for COVID-19 on of was day 18 states that he has not been feeling well for the last 3 weeks or so recently has gotten worse having dry cough that has become progressively persistent, body aches and pains, general malaise general weakness, fevers, chills, no nausea, no vomiting, no diarrhea, no abdominal pain, has not been able to eat due to poor appetite as well patient was able to make it to his dialysis treatment but did not improve, he decided to come to the emergency room. Preliminary workup in the emergency room was significant for patchy diffuse infiltrates of bilateral lung del cid. Review of Systems Review of Systems: Generalized weakness, persistent dry coughs, shortness of breath, poor appetite. Constitutional: Constitutional: Reports chills, Reports fatigue, Reports fever(s), Reports lethargy, Reports malaise, Reports night sweats, Reports poor appetite and Reports weakness Eyes: Eyes: Denies change in vision ENT: Denies dysphagia, Denies nasal congestion, Denies nasal discharge and Denies nasal obstruction Cardiovascular: Cardiovascular: Denies chest pain, Denies irregular heart rhythm, Denies radiating jaw, neck or arm pain, Denies palpitations, Denies dyspnea and Denies orthopnea Respiratory: Respiratory: Reports cough, Denies excessive phlegm production, Reports dyspnea, Reports dyspnea on exertion and Denies wheezing Gastrointestinal: Gastrointestinal: Denies dyspepsia, Denies heartburn, Denies diarrhea, Denies nausea and Denies vomiting Genitourinary: Genitourinary: Reports no additional male genitourinary complaints Musculoskeletal: Musculoskeletal: Reports myalgias Integumentary/Breasts: Skin/Breast: Reports system reviewed and no additional complaints, except as docu Neurologic: Reports system reviewed and no additional complaints, except as documented Psychiatric: Psychiatric: Reports no additional psychiatric complaints Endocrine: Endocrine: Reports no additional endocrine complaints Hematologic/Lymphatic: Hematologic/Lymphatic: Reports no additional hematologic/lymphatic complaints Allergic/Immunologic: Allergic/Immunologic: Reports no additional allergic/immunologic complaints PMFSH Past Medical History Medical History Anemia Chronic renal failure, stage 5 Hemodialysis access site with arteriovenous graft Hypertension Surgical History Surgical History No pertinent past surgical history Family History Family History Grandparent Hypertension Other Cerebrovascular accident Social History Social History Smoking status: Never smoker Alcohol intake: current Substance use: current 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 Gender identity (if verbalized by the patient): Male Spiritual care concerns: No Meds Home Medications and Allergies Home Medications Medication Instructions Recorded Confirmed Type amlodipine 10 mg tablet 10 mg PO DAILY 03/02/20 10/07/20 History losartan 25 mg tablet 50 mg PO DAILY 03/02/20 10/07/20 History tramadol [Ultram] 50 mg PO Q6H PRN #20 tablet 09/16/20 10/07/20 Rx ondansetron 4 mg PO Q8H PRN #10 tablet 09/24/20 10/07/20 Rx metoprolol succinate 100 mg PO DAILY 10/07/20 10/07/20 History Allergies Allergy/AdvReac Type Severity Reaction Status Date / Time No Known Allergies Allergy Verified 10/06/20 16:33 Vital Signs Vital Signs - 24 hr 10/06/20 16:29 10/06/20 17:56 10/06/20 19:13 Temperature 98.9 F Pulse Rate 108 H 86 96 Resp
[2020-10-07] VITALS (15 sets, daily range): BP systolic 145–170; BP diastolic 83–106; PULSE 76–110; RESP 16–32; TEMP 36.6–36.9; O2SAT 93–100; BMI 24.0
[2020-10-07] MEDS: ALBUTEROL SULFATE (*SP) AEROSOL 1 PUFF 2 PUFF INHALATION ×4 (00:05→16:50)
--- NOTE | 2020-10-07 02:44 | ADMGEN ---
This patient, Michael Mckeon, was admitted to IMU Room 210-01. Patient/family oriented to hospital policies and general routines including ID bracelet, bed and alarms, visiting hours, pain management, procedures, bathroom and other care routines, personal items, smoking policy, room service/diet, and visiting hours. Information on how to activate the Rapid Response Team has been discussed. Patient/Family are encouraged to report perceived risks to care and to ask questions if they do not understand what they are told or what they should do. Isabella CAIN [id number]
[2020-10-07 05:38] LABS: Alanine Aminotransferase 23 U/L (4-50); Estimated CRCL calculation 9 ml/min; Estimated Glomerular Filt Rate 7; Prothrombin Time 13.1 Seconds (11.1-14.7)
--- NOTE | 2020-10-07 06:51 | PHAR ---
REMDESEVIR EVALUATION - I SPOKE WITH DR. BROWN ABOUT PURPORTED RISK OF USING REMDESEVIR IN THIS PATIENT. THERE HAVE BEEN SMALL STUDIES SHOWING SIMILAR ADVERSE EVENT RISK TO A STANDARD POPULATION FOR DIALYSIS PATIENTS. DR BROWN SAID THE BENEFIT OUTWEIGHED THE RISKS AND WANTS TO GO AHEAD WITH TREATMENT.
[2020-10-07] MEDS: METOPROLOL SUCCINATE EXT REL 100 MG TABCR PO (08:41)
[2020-10-07] MEDS: amLODIPine BESYLATE 5 MG TABLET 10 MG PO (08:41)
[2020-10-07] MEDS: LOSARTAN POTASSIUM 50 MG TABLET PO (08:41)
[2020-10-07] MEDS: HEPARIN SODIUM 5,000 UNITS/ML VIAL 5000 UNITS SUB-Q ×2 (08:41→20:48)
--- NOTE | 2020-10-07 12:33 | PM.CNNEP ---
Assessment and Plan Assessment and plan (1) End stage renal disease: Code(s): N18.6 - End stage renal disease Status: Chronic Assessment and Plan: plan HD tomorrow and continue T/T/S schedule follow electrolytes, volume status, and clearance (2) Suspected COVID-19 virus infection: Code(s): Z20.822 - Contact with and (suspected) exposure to COVID-19 Status: Acute Assessment and Plan: CXR suggestive COVID-19 testing pending continue supportive therapy (3) Pneumonia: Code(s): J18.9 - Pneumonia, unspecified organism Status: Acute Assessment and Plan: follow cultures on antibiotic therapy (4) Hyperkalemia: Code(s): E87.5 - Hyperkalemia Status: Acute Assessment and Plan: mildly elevated HD tomorrow should fully correct follow trend (5) Hypertension: Qualifiers: Hypertension type: secondary to other renal disorders Qualified Code(s): I15.1 - Hypertension secondary to other renal disorders; N28.89 - Other specified disorders of kidney and ureter Code(s): I10 - Essential (primary) hypertension Status: Acute Assessment and Plan: mildly elevated continue current medications follow trend of hemodymics (6) Anemia: Code(s): D64.9 - Anemia, unspecified Status: Chronic Assessment and Plan: due to ESRD Epogen with HD follow trend of H/H Will continue to follow. History of Present Illness Reason for Consult Consult date: 10/07/20 Reason for consult: end stage renal disease Chief Complaint Chief complaint: COVID Pneumonia, Hyperkalemia, ESRD History of Present Illness Narrative: The patient is a 30-year-old male with past medical history as outlined below who presented to [facility] Emergency room with complaints of not feeling well. According to the patient, for the last week to 10 days he has been having issues/complaints of a productive cough of yellowish yellowish sputum in association with fatigue, generalized weakness, and headache. He feels that he has been coughing so much that this is the cause of his headache. He reportedly tested negative for COVID-19 about a week ago when the symptoms started. He gave no other history with regard to chest pain, shortness of breath, abdominal pain, nausea, vomiting, diaphoresis, fevers, or chills. While he was at dialysis yesterday, he reported the symptoms and he was instructed that perhaps he needs to go to an urgent care center or the ER for further evaluation given the persistence of the symptoms. Upon presentation to the emergency room after his dialysis treatment yesterday, he reiterated the above symptoms. He was hemodynamically stable and routine blood test demonstrated labs consistent with his known history of end-stage renal disease but with no elevated white blood cell count. Chest x-ray showed bilateral patchy infiltrates and given that he had just received dialysis that same day, it was not felt to be pulmonary edema but perhaps may be actual pneumonia. Furthermore, given his symptoms and despite his negative testing, there was concern that the mother that this pneumonia may actually be secondary to COVID-19. He received a dose of dexamethasone in the ER and was started on ceftriaxone and azithromycin for possible community-acquired pneumonia. He was subsequent mid Hospital for further testing /evaluation. Renal consultation was requested due to his end-stage renal disease. The patient normally dialyzes on a Monday schedule at [facility] under the care of Dr. Arnoldo Banegas. The patient just recently transferred to this outpatient dialysis facility [facility] not too long ago. The patient is somewhat familiar to me as I have taking care of him before when he was receiving dialysis at [facility] for a brief period time. With regard to his dialysis, his compliance wi
[2020-10-07 15:30] LABS: SARS-CoV-2 RNA PCR Negative
--- NOTE | 2020-10-07 18:54 | PM.IMPN ---
Progress Note: A&P Assessment and Plan (1) Pneumonia due to 2019 novel coronavirus: Code(s): U07.1 - COVID-19; J12.82 - Pneumonia due to coronavirus disease 2019 Status: Acute Assessment and Plan: Is started on remdesivir and dexamethasone Zithromax and Rocephin for added antibacterial coverage Breathing treatment Incentive spirometry Supplemental oxygen as needed try and keep oxygen saturation between 92-94% Supportive care Isolation 10/07/20 18:54 Chief Complaint: Generalized weakness Narrative: This is a 30-year-old male with past medical history significant for end-stage renal disease on hemodialysis Monday and Saturdays. Patient tested positive for COVID-19 on of was 18 states that he has not been feeling well for the last 3 weeks or so recently has gotten worse having dry cough that has become progressively persistent, body aches and pains, general malaise general weakness, fevers, chills, no nausea, no vomiting, no diarrhea, no abdominal pain, has not been able to eat due to poor appetite as well patient was able to make it to his dialysis treatment but did not improve, he decided to come to the emergency room. Preliminary workup in the emergency room was significant for patchy diffuse infiltrates of bilateral lung del cid. 10/07 therapy to be miscommunication patient was not positive for COVID-19 however patient suspect patient may have a COVID, patient is been isolated and being tested, currently patient denies any complaint cough shortness of breath fever or chills, patient has had history of end-stage renal disease on hemodialysis, is on scheduled for Monday and Monday, patient will have a hemodialysis tomorrow, patient be seen by Nephrology, will continue to monitor patient the patient is positive for COVID-19 will follow the protocol and further recommendation to follow. (2) Acute hyperkalemia: Code(s): E87.5 - Hyperkalemia Status: Acute Assessment and Plan: Likely secondary to renal failure Receiving breathing treatments Repeat BMP in a.m. (3) ESRD (end stage renal disease) on dialysis: Code(s): N18.6 - End stage renal disease; Z99.2 - Dependence on renal dialysis Status: Acute Assessment and Plan: Nephrology consult Hemodialysis as scheduled (4) Hypertension: Qualifiers: Hypertension type: secondary to other renal disorders Qualified Code(s): I15.1 - Hypertension secondary to other renal disorders; N28.89 - Other specified disorders of kidney and ureter Code(s): I10 - Essential (primary) hypertension Status: Acute Assessment and Plan: Continue home meds Subjective Date/time seen: 10/07/20 18:54 Chief Complaint: Generalized weakness Narrative: This is a 30-year-old male with past medical history significant for end-stage renal disease on hemodialysis Monday and Saturdays. Patient tested positive for COVID-19 on of 18 states that he has not been feeling well for the last 3 weeks or so recently has gotten worse having dry cough that has become progressively persistent, body aches and pains, general malaise general weakness, fevers, chills, no nausea, no vomiting, no diarrhea, no abdominal pain, has not been able to eat due to poor appetite as well patient was able to make it to his dialysis treatment but did not improve, he decided to come to the emergency room. Preliminary workup in the emergency room was significant for patchy diffuse infiltrates of bilateral lung del cid. 10/07 therapy to be miscommunication patient was not positive for COVID-19 however patient suspect patient may have a COVID, patient is been isolated and being tested, currently patient denies any complaint cough shortness of breath fever or chills, patient has had history of end-stage renal disease on hemodialysis, is on scheduled for Monday and Monday, patient will have a hemodialysis tomorrow, patient be seen b
[2020-10-08] VITALS (21 sets, daily range): BP systolic 160–205; BP diastolic 90–124; PULSE 76–93; RESP 16–20; TEMP 36.4–37.1; O2SAT 93–99
--- NOTE | 2020-10-08 01:35 | PC.NURSE ---
This patient, Michael Mckeon, was transferred to [facility] on 10/08/20 at 0135. Personal belongings sent with patient. Appropriate documentation sent with patient.
[2020-10-08 06:02] LABS: Alanine Aminotransferase 19 U/L (4-50); Estimated CRCL calculation 7 ml/min; Estimated Glomerular Filt Rate 6
[2020-10-08 06:13] LABS: INR 0.9; Prothrombin Time 11.9 Seconds (11.1-14.7)
[2020-10-08 07:51] LABS: Hepatitis B Surface Antigen Negative (Negative)
[2020-10-08 07:57] LABS: HAV RESULT Negative (Negative); Hepatitis B Core IgM Result Negative (Negative)
[2020-10-08 08:09] LABS: Hepatitis B Surface Antibody > 1000.00 s/c; Hepatitis C Virus Antibody Negative (Negative)
[2020-10-08] MEDS: METOPROLOL SUCCINATE EXT REL 100 MG TABCR PO (08:15)
[2020-10-08] MEDS: LOSARTAN POTASSIUM 50 MG TABLET PO ×2 (08:16→16:28)
[2020-10-08] MEDS: amLODIPine BESYLATE 5 MG TABLET 10 MG PO (08:16)
[2020-10-08] MEDS: ALBUTEROL SULFATE (*SP) AEROSOL 1 PUFF 2 PUFF INHALATION ×3 (08:31→21:16)
--- NOTE | 2020-10-08 10:15 | P.PNNP_ITS ---
Progress Note: A&P Assessment and Plan (1) End stage renal disease: Code(s): N18.6 - End stage renal disease Status: Chronic Assessment and Plan: * HD today and continue T/T/S schedule * follow electrolytes, volume status, and clearance (2) Suspected COVID-19 virus infection: Code(s): Z20.822 - Contact with and (suspected) exposure to COVID-19 Status: Acute Assessment and Plan: * CXR suggestive * COVID-19 testing negative * continue supportive therapy (3) Pneumonia: Code(s): J18.9 - Pneumonia, unspecified organism Status: Acute Assessment and Plan: * follow cultures * on antibiotic therapy (4) Hyperkalemia: Code(s): E87.5 - Hyperkalemia Status: Acute Assessment and Plan: * mildly elevated * HD tomorrow should fully correct * follow trend (5) Hypertension: Qualifiers: Hypertension type: secondary to other renal disorders Qualified Code (s): I15.1 - Hypertension secondary to other renal disorders; N28.89 - Other specified disorders of kidney and ureter Code(s): I10 - Essential (primary) hypertension Status: Acute Assessment and Plan: * running high (but this is not a new issue per his outpatient dialysis unit) * continue current medications * change losartan to bid and increase metoprolol * consider changing amlodipine to nifedipine * follow trend of hemodynamics (6) Anemia: Code(s): D64.9 - Anemia, unspecified Status: Chronic Assessment and Plan: * due to ESRD * Epogen with HD * follow trend of H/H Will continue to follow. Subjective Date/time seen: 10/08/20 10:15 Tolerating dialysis treatment at the time of my visit (seen on HD at ~ 10:00am); BP running a bit high but may improve with dialysis; no other acute issues/complaints voiced; no events overnight or earlier this AM. Exam Narrative: General: WD/WN male in NAD Heart: normal S1 and S2; no rub Lungs: clear to auscultation Abdomen: soft, nontender, nondistended, positive bowel sounds Extremities: no cyanosis or clubbing; no edema Skin: warm and dry Objective Data Vital Signs Vital Signs: Vital Signs Temp Pulse Resp BP Pulse Ox 10/08/20 10:15 83 198/113 H 10/08/20 09:45 84 200/112 H 10/08/20 09:30 36.7 C 90 18 199/124 H 10/08/20 08:33 91 16 10/08/20 08:15 88 10/08/20 08:00 76 10/08/20 04:51 93 10/08/20 04:47 88 16 10/08/20 04:46 93 10/08/20 04:00 36.4 C L 77 18 160/90 H 96 10/08/20 00:00 86 93 10/07/20 23:20 36.6 C 84 18 145/83 H 99 10/07/20 20:00 36.6 C 98 20 170/83 H 97 10/07/20 16:29 36.8 C 88 18 157/93 H 93 10/07/20 16:00 86 Intake/Output Intake/Output: Intake & Output 10/05/20 10/06/20 10/07/20 10/08/20 23:59 23:59 23:59 23:59 Intake Total 50 1370 450 Output Total 2100 Balance 50 1370 -1650 Meds/Results Medications: Active Medications Generic Name Dose Route Start Last Admin Trade Name Freq PRN Reason Stop Dose Admin Albuterol 2 puff 10/08/20 12:00 10/08/20 13:20 Albuterol Sulfate (*Sp) Aerosol 1 Puff INHALATION Not G
--- NOTE | 2020-10-08 10:15 | PM.PNNEP ---
Progress Note: A&P Assessment and Plan (1) End stage renal disease: Code(s): N18.6 - End stage renal disease Status: Chronic Assessment and Plan: HD today and continue T/T/S schedule follow electrolytes, volume status, and clearance (2) Suspected COVID-19 virus infection: Code(s): Z20.822 - Contact with and (suspected) exposure to COVID-19 Status: Acute Assessment and Plan: CXR suggestive COVID-19 testing negative continue supportive therapy (3) Pneumonia: Code(s): J18.9 - Pneumonia, unspecified organism Status: Acute Assessment and Plan: follow cultures on antibiotic therapy (4) Hyperkalemia: Code(s): E87.5 - Hyperkalemia Status: Acute Assessment and Plan: mildly elevated HD tomorrow should fully correct follow trend (5) Hypertension: Qualifiers: Hypertension type: secondary to other renal disorders Qualified Code(s): I15.1 - Hypertension secondary to other renal disorders; N28.89 - Other specified disorders of kidney and ureter Code(s): I10 - Essential (primary) hypertension Status: Acute Assessment and Plan: running high (but this is not a new issue per his outpatient dialysis unit) continue current medications change losartan to bid and increase metoprolol consider changing amlodipine to nifedipine follow trend of hemodynamics (6) Anemia: Code(s): D64.9 - Anemia, unspecified Status: Chronic Assessment and Plan: due to ESRD Epogen with HD follow trend of H/H Will continue to follow. Subjective Date/time seen: 10/08/20 10:15 Tolerating dialysis treatment at the time of my visit (seen on HD at ~ 10:00am); BP running a bit high but may improve with dialysis; no other acute issues/complaints voiced; no events overnight or earlier this AM. Exam Narrative: General: WD/WN male in NAD Heart: normal S1 and S2; no rub Lungs: clear to auscultation Abdomen: soft, nontender, nondistended, positive bowel sounds Extremities: no cyanosis or clubbing; no edema Skin: warm and dry Objective Data Vital Signs Vital Signs: Vital Signs Temp Pulse Resp BP Pulse Ox 10/08/20 10:15 83 198/113 H 10/08/20 09:45 84 200/112 H 10/08/20 09:30 36.7 C 90 18 199/124 H 10/08/20 08:33 91 16 10/08/20 08:15 88 10/08/20 08:00 76 10/08/20 04:51 93 10/08/20 04:47 88 16 10/08/20 04:46 93 10/08/20 04:00 36.4 C L 77 18 160/90 H 96 10/08/20 00:00 86 93 10/07/20 23:20 36.6 C 84 18 145/83 H 99 10/07/20 20:00 36.6 C 98 20 170/83 H 97 10/07/20 16:29 36.8 C 88 18 157/93 H 93 10/07/20 16:00 86 Intake/Output Intake/Output: Intake & Output 10/05/20 10/06/20 10/07/20 10/08/20 23:59 23:59 23:59 23:59 Intake Total 50 1370 450 Output Total 2100 Balance 50 1370 -1650 Meds/Results Medications: Active Medications Generic Name Dose Route Start Last Admin Trade Name Freq PRN Reason Stop Dose Admin Albuterol 2 puff 10/08/20 12:00 10/08/20 13:20 Albuterol Sulfate (*Sp) Aerosol 1 Puff INHALATION Not Given QIDRT [facility] Amlodipine Besylate 10 mg 10/07/20 09:00 10/08/20 08:16 Amlodipine Besylate 5 Mg Tablet PO 10 mg DAILY ALVARO Administration Cyclobenzaprine HCl 5 mg 10/07/20 13:47 Cyclobenzaprine Hcl 5 Mg Tablet PO Q8H PRN Muscle Spasm Epoetin Rodolfo-epbx 3,000 units 10/08/20 19:08 10/08/20 12:41 Epoetin Rodolfo-Epbx 3,000 Units/Ml Vial IV PUSH 10/08/20 19:09 3,000 units ONCE ONE Administration Heparin Sodium (Porcine) 5,000 units 10/07/20 09:00 10/07/20 20:48 Heparin Sodium 5,000 Units/Ml Vial SUB-Q 5,000 units Q12HR ALVARO Administration Ceftriaxone Sodium 2 gm in 100 mls @ 200 mls/hr 10/07/20 21:00 10/07/20 20:47 Rocephin 2 Gm/D5w 100 Ml IVPB 200 mls/hr DAILY@2100 ALVARO Administration Azithromycin 500 mg in 250 mls @ 2
[2020-10-08] MEDS: EPOETIN ALFA-EPBX 2,000 UNITS/ML VIAL 2000 UNITS IV PUSH (11:00)
[2020-10-08] MEDS: EPOETIN ALFA-EPBX 3,000 UNITS/ML VIAL 3000 UNITS IV PUSH (12:41)
--- NOTE | 2020-10-08 14:16 | PM.IMPN ---
Progress Note: A&P Assessment and Plan (1) Pneumonia due to 2019 novel coronavirus: Code(s): U07.1 - COVID-19; J12.82 - Pneumonia due to coronavirus disease 2019 Status: Acute Assessment and Plan: Is started on remdesivir and dexamethasone Zithromax and Rocephin for added antibacterial coverage Breathing treatment Incentive spirometry Supplemental oxygen as needed try and keep oxygen saturation between 92-94% Supportive care Isolation 10/08/20 14:16 Chief Complaint: Generalized weakness Narrative: This is a 30-year-old male with past medical history significant for end-stage renal disease on hemodialysis Monday and Saturdays. Patient tested positive for COVID-19 on of 18 states that he has not been feeling well for the last 3 weeks or so recently has gotten worse having dry cough that has become progressively persistent, body aches and pains, general malaise general weakness, fevers, chills, no nausea, no vomiting, no diarrhea, no abdominal pain, has not been able to eat due to poor appetite as well patient was able to make it to his dialysis treatment but did not improve, he decided to come to the emergency room. Preliminary workup in the emergency room was significant for patchy diffuse infiltrates of bilateral lung del cid. 10/07 therapy to be miscommunication patient was not positive for COVID-19 however patient suspect patient may have a COVID, patient is been isolated and being tested, currently patient denies any complaint cough shortness of breath fever or chills, patient has had history of end-stage renal disease on hemodialysis, is on scheduled for Monday and Monday, patient will have a hemodialysis tomorrow, patient be seen by Nephrology, will continue to monitor patient the patient is positive for COVID-19 will follow the protocol and further recommendation to follow. 10/08 patient COVID test is negative and out of isolation, patient seen in dialysis center, x-ray was done upon arrival suspect patient community-acquired pneumonia being treated with Rocephin and azithromycin, patient denies any cough shortness of breath, fever or chills, will continue present management. patient is clinically stable, normal white counts, and no fever if if blood culture is not growing any bacteria will discharge patient home tomorrow. (2) Acute hyperkalemia: Code(s): E87.5 - Hyperkalemia Status: Acute Assessment and Plan: Likely secondary to renal failure Receiving breathing treatments Repeat BMP in a.m. (3) ESRD (end stage renal disease) on dialysis: Code(s): N18.6 - End stage renal disease; Z99.2 - Dependence on renal dialysis Status: Acute Assessment and Plan: Nephrology consult Hemodialysis as scheduled (4) Hypertension: Qualifiers: Hypertension type: secondary to other renal disorders Qualified Code(s): I15.1 - Hypertension secondary to other renal disorders; N28.89 - Other specified disorders of kidney and ureter Code(s): I10 - Essential (primary) hypertension Status: Acute Assessment and Plan: Continue home meds Subjective Date/time seen: 10/08/20 14:16 Chief Complaint: Generalized weakness Narrative: This is a 30-year-old male with past medical history significant for end-stage renal disease on hemodialysis Monday and Saturdays. Patient tested positive for COVID-19 on of was day 18 states that he has not been feeling well for the last 3 weeks or so recently has gotten worse having dry cough that has become progressively persistent, body aches and pains, general malaise general weakness, fevers, chills, no nausea, no vomiting, no diarrhea, no abdominal pain, has not been able to eat due to poor appetite as well patient was able to make it to his dialysis treatment but did not improve, he decided to come to the emergency room. Preliminary workup in the emergency room was significant for patchy diffuse infiltrates
[2020-10-08] MEDS: HEPARIN SODIUM 5,000 UNITS/ML VIAL 5000 UNITS SUB-Q ×2 (14:21→20:23)
[2020-10-08 16:41] LABS: Hepatitis B Surface Anti Res Positive
[2020-10-08] MEDS: hydrALAZINE HCL 20 MG/ML VIAL 25 MG IV PUSH (18:30)
[2020-10-08] MEDS: ONDANSETRON HCL ODT 4 MG TABLET PO (20:23)
[2020-10-09 01:30] VITALS: BP 192/100; PULSE 95; RESP 16; TEMP 36.6; O2SAT 97
[2020-10-09] MEDS: hydrALAZINE HCL 20 MG/ML VIAL 25 MG IV PUSH (01:42)
[2020-10-09 06:14] LABS: Alanine Aminotransferase 18 U/L (4-50); Estimated CRCL calculation 10 ml/min; Estimated Glomerular Filt Rate 8; INR 0.9; Prothrombin Time 11.8 Seconds (11.1-14.7)
[2020-10-09 06:34] VITALS: BP 186/100; PULSE 102; RESP 18; TEMP 37.1; O2SAT 97
[2020-10-09 06:42] VITALS: PULSE 102
[2020-10-09] MEDS: METOPROLOL SUCCINATE EXT REL 50 MG TABCR 150 MG PO (06:42)
[2020-10-09] MEDS: NIFEdipine 30 MG TAB.ER.24 PO (06:43)
[2020-10-09] MEDS: LOSARTAN POTASSIUM 50 MG TABLET PO (06:43)
[2020-10-09] MEDS: HEPARIN SODIUM 5,000 UNITS/ML VIAL 5000 UNITS SUB-Q (09:08)
[2020-10-09 09:17] LABS: Albumin Level 3.2 g/dL (3.5-5.1); Anion Gap 8 mmol/L (8-16); Blood Urea Nitrogen 43 mg/dL (9-20); Calcium 8.7 mg/dL (8.4-10.2); Carbon Dioxide 23 mmol/L (22-30); Chloride 103 mmol/L (98-107); Estimated CRCL calculation 10 ml/min; Estimated Glomerular Filt Rate 8; Glucose 90 mg/dL (65-110); Phosphorus 5.4 mg/dL (2.5-4.5); Potassium 5.2 mmol/L (3.4-5.0); Sodium 134 mmol/L (137-145)
[2020-10-09 10:05] VITALS: BP 165/93; PULSE 90; RESP 14; TEMP 37; O2SAT 97
[2020-10-09] MEDS: ALBUTEROL SULFATE (*SP) AEROSOL 1 PUFF 2 PUFF INHALATION (10:13)
--- NOTE | 2020-10-09 11:20 | PM.DS ---
DS: Admitting Diagnosis Admitting Diagnosis Chief Complaint: Generalized weakness DS: Discharge Diagnosis Discharge Diagnosis (1) Pneumonia due to 2019 novel coronavirus: Code(s): U07.1 - COVID-19; J12.82 - Pneumonia due to coronavirus disease 2019 Status: Acute Assessment and Plan: Is started on remdesivir and dexamethasone Zithromax and Rocephin for added antibacterial coverage Breathing treatment Incentive spirometry Supplemental oxygen as needed try and keep oxygen saturation between 92-94% Supportive care Isolation 10/08/20 14:16 Chief Complaint: Generalized weakness Narrative: This is a 30-year-old male with past medical history significant for end-stage renal disease on hemodialysis Monday and Saturdays. Patient tested positive for COVID-19 on of 18 states that he has not been feeling well for the last 3 weeks or so recently has gotten worse having dry cough that has become progressively persistent, body aches and pains, general malaise general weakness, fevers, chills, no nausea, no vomiting, no diarrhea, no abdominal pain, has not been able to eat due to poor appetite as well patient was able to make it to his dialysis treatment but did not improve, he decided to come to the emergency room. Preliminary workup in the emergency room was significant for patchy diffuse infiltrates of bilateral lung del cid. 10/07 therapy to be miscommunication patient was not positive for COVID-19 however patient suspect patient may have a COVID, patient is been isolated and being tested, currently patient denies any complaint cough shortness of breath fever or chills, patient has had history of end-stage renal disease on hemodialysis, is on scheduled for Monday and Monday, patient will have a hemodialysis tomorrow, patient be seen by Nephrology, will continue to monitor patient the patient is positive for COVID-19 will follow the protocol and further recommendation to follow. 10/08 patient COVID test is negative and out of isolation, patient seen in dialysis center, x-ray was done upon arrival suspect patient community-acquired pneumonia being treated with Rocephin and azithromycin, patient denies any cough shortness of breath, fever or chills, will continue present management. patient is clinically stable, normal white counts, and no fever if if blood culture is not growing any bacteria will discharge patient home tomorrow. (2) Acute hyperkalemia: Code(s): E87.5 - Hyperkalemia Status: Acute Assessment and Plan: Likely secondary to renal failure Receiving breathing treatments Repeat BMP in a.m. (3) ESRD (end stage renal disease) on dialysis: Code(s): N18.6 - End stage renal disease; Z99.2 - Dependence on renal dialysis Status: Acute Assessment and Plan: Nephrology consult Hemodialysis as scheduled (4) Hypertension: Qualifiers: Hypertension type: secondary to other renal disorders Qualified Code(s): I15.1 - Hypertension secondary to other renal disorders; N28.89 - Other specified disorders of kidney and ureter Code(s): I10 - Essential (primary) hypertension Status: Acute Assessment and Plan: Continue home meds DS: Summary Hospital Course Reason for hospitalization: Chief Complaint: Generalized weakness Narrative: This is a 30-year-old male with past medical history significant for end-stage renal disease on hemodialysis Monday and Saturdays. Patient tested positive for COVID-19 on of was day 18 states that he has not been feeling well for the last 3 weeks or so recently has gotten worse having dry cough that has become progressively persistent, body aches and pains, general malaise general weakness, fevers, chills, no nausea, no vomiting, no diarrhea, no abdominal pain, has not been able to eat due to poor appetite as well patient was able to make it to his dialysis treatment but did not improve, he decided to come to the e
== END 2020-10-09 12:30 | disposition home or self-care (01) | DRG 193 ==
LOC: ANHED 22:24 → ANH2MED 10-09 11:19 → ANHIMU 10-14 14:22
PROVIDERS: Internal Medicine Nephrology; Admitting Provider Internal Medicine; Emergency Provider Emergency Medicine; Visit Provider Family Medicine
DX: J18.9 Pneumonia, unspecified organism (principal); N18.6 End stage renal disease; I15.1 Hypertension secondary to other renal disorders; D63.1 Anemia in chronic kidney disease; Z20.822 Contact with and (suspected) exposure to COVID-19; N28.89 Other specified disorders of kidney and ureter; Z99.2 Dependence on renal dialysis; E87.5 Hyperkalemia
CPT/HCPCS: 36415; 71045; 71046; 80053; 80069; 80074; 82565; 83605; 84460; 85025; 85610; 86706; 86900; 86901; 87040; 93005; 94640; 96374; 99285; A9270; C9803; G0257; J0360; J0456; J0696; J1100; J1644; J1940; J7030; Q5106; U0003; U0005

== ENCOUNTER → 2021-02-09 02:46 | Outpatient (CLI) | payer OTHER, SELFPAY ==
[2021-02-09 20:09] LABS: SARS-CoV-2 RNA PCR Positive
== END ==
DX: U07.1 COVID-19 (principal)
CPT/HCPCS: C9803; U0003; U0005

== ENCOUNTER 2021-05-23 20:18 | Emergency (ER) | payer OTHER, MEDICAID, SELFPAY ==
--- NOTE | ~2021-05-23 | XR_ITS ---
EXAMINATION: XR finger 2nd RT min 2V EXAM DATE: 05/23/2021 22:14 INDICATION: Right 2nd finger swelling, pain. TECHNIQUE: Right 2nd finger frontal, lateral and oblique projections obtained and reviewed. There is no prior study for comparison. FINDINGS: There is swelling over the right 2nd nail bed. No underlying osseous change. There are no acute fractures or dislocations identified. There is no subcutaneous gas. The soft tissue is unrema rkable. There are no radiopaque foreign bodies. IMPRESSION: 1. Right 2nd finger exam without acute osseous findings. 2. Soft tissue swelling. Reviewed, dictated and finalized at location A.
[2021-05-23 20:20] VITALS: BP 144/83; PULSE 83; RESP 16; TEMP 36.2; O2SAT 100
--- NOTE | 2021-05-23 22:13 | ED.GENADULT ---
HPI - General Adult General Chief complaint: Extremity Injury, Upper <Mateus Lopez MD - Last Filed: 05/24/21 04:12> Stated complaint: right hand swelling <Mateus Lopez MD - Last Filed: 05/24/21 04:12> Time Seen by Provider: 05/23/21 21:16 <Mateus Lopez MD - Last Filed: 05/24/21 04:12> History of Present Illness HPI narrative: Patient is a 31-year-old male with a history of kidney transplant on immunosuppressants who presents emergency department for evaluation of atraumatic right second digit swelling and pain near the fingernail. States the pain came on 2 days ago and has progressed in severity since onset. He is able to move his finger without issue denies any numbness or tingling in the digit. Denies fevers, chills, nausea, vomiting. States he does not bite his nails. <Nela Morton PA-C - Last Filed: 05/23/21 22:20> Related Data Home medications: Home Medications Medication Instructions Recorded Confirmed losartan 25 mg tablet 50 mg PO DAILY 03/02/20 10/07/20 <Mateus Lopez MD - Last Filed: 05/24/21 04:12> Allergies/adverse reactions: Allergies Allergy/AdvReac Type Severity Reaction Status Date / Time No Known Allergies Allergy Verified 10/06/20 16:33 <Mateus Lopez MD - Last Filed: 05/24/21 04:12> Review of Systems Review of Systems: Gen.: Denies fevers or chills Eyes: Denies eye pain or visual change ENT: Denies congestion Respiratory: Denies shortness of breath or cough CV: Denies chest pain or palpitations GI: Denies abdominal pain nausea, emesis or diarrhea denies burning, urgency, frequency or hematuria Musculoskeletal: Denies back pain or muscle pain Neuro: Denies numbness, tingling, weakness or focal weakness Skin: Reports pain and swelling to right second digit. Except as documented, all other systems reviewed and negative <CAITLIN Saravia Last Filed: 05/23/21 22:20> All systems reviewed & are unremarkable except as noted in HPI and below <Nela Morton PA-C - Last Filed: 05/23/21 22:20> [facility] Past Medical History Medical History: Medical History Anemia Chronic renal failure, stage 5 Hemodialysis access site with arteriovenous graft Hypertension <Mateus Lopez MD - Last Filed: 05/24/21 04:12> Surgical History Surgical History: Surgical History No pertinent past surgical history <Mateus Lopez MD - Last Filed: 05/24/21 04:12> Family History Family History: Family History Grandparent Hypertension Other Cerebrovascular accident <Mateus Lopez MD - Last Filed: 05/24/21 04:12> Social History Social History: Social History Smoking status: Never smoker Alcohol intake: current Substance use: current Additional occupation/education comments: [employer] Gender identity (if verbalized by the patient): Male Spiritual care concerns: No <Mateus Lopez MD - Last Filed: 05/24/21 04:12> Exam Narrative: APPEARANCE: Well appearing, no pain in distress, well-nourished. Head normocephalic and atraumatic. EYES: PERRLA/EOMI, conjunctivae clear NOSE: No nasal drainage EARS: External ear normal in appearance THROAT: Oropharynx is clear. Mucous membranes are moist. NECK: Supple. No adenopathy, no masses. RESPIRATORY: Airway patent, respirations nonlabored. Clear to auscultation bilaterally, no rales, rhonchi, wheezing. CARDIOVASCULAR: Regular rate and rhythm without murmurs, rubs, or gallops. ABDOMINAL: Normoactive bowel sounds. Soft, nontender, nondistended. No rebound tenderness or guarding. MUSCULOSKELETAL: Extremities are warm and well-perfused. Moves all extremities well. No edema. NEURO: Normal speech. No focal neuro
== END 2021-05-23 23:10 | disposition home or self-care (01) ==
PROVIDERS: Emergency Provider Emergency Medicine; PCP Emergency Medicine
DX: L03.011 Cellulitis of right finger (principal); I12.0 Hypertensive chronic kidney disease with stage 5 chronic kidney disease or end stage renal disease; N18.5 Chronic kidney disease, stage 5; Z94.0 Kidney transplant status; Z86.2 Personal history of diseases of the blood and blood-forming organs and certain disorders involving the immune mechanism
CPT/HCPCS: 10060; 26010; 73140; 99283